=== PATIENT | female | born 1995 | race African-American/Black ===

== ENCOUNTER 2018-07-08 10:32 | Emergency (ER) | payer BC ==
[~2018-07-08] VITALS: Ht 167.6 cm; Wt 72.6 kg
[2018-07-08 10:39] VITALS: BP 132/81
[2018-07-08 11:31] LABS: Urine Bacteria FEW /hpf (None Seen); Urine Blood 1+ /uL (Negative); Urine Mucus FEW (None Seen); Urine Specific Gravity 1.018 (1.001-1.035); Urine WBC 195 /hpf (0 - 5)
[2018-07-08] MEDS ORDERED: ACETAMINOPHEN 325 MG TAB PO ONE (12:30)
== END 2018-07-08 13:02 | disposition home or self-care (01) ==
LOC: ER 10:32
DX: N39.0 Urinary tract infection, site not specified (principal)
CPT/HCPCS: 74176; 81001; 81025